=== PATIENT | male | born 1955 | race Hispanic/Latino ===

== ENCOUNTER 2025-08-04 19:00 | Emergency (ER) | payer MEDICAID, SELFPAY ==
[~2025-08-04 19:00] MED LIST: Iopamidol 300 61% 100 ML VIAL FS ONE
[2025-08-04] MEDS ORDERED: Ondansetron PF 4 MG/2 ML Vial ONE (19:59)
[2025-08-04 20:36] LABS: #Basophils 0.03 10x3/uL (0.0-0.2); #Eosinophils 0.12 10x3/uL (0.0-0.5); #Monocytes 0.38 10x3/uL (0.0-1.1); #Neutrophils 1.87 10x3/uL (1.5-8.4); %Basophils 0.7 % (0.0-2.0); %Eosinophils 3.0 % (0.0-6.0); %Lymphocytes 39.6 % (18.0-47.0); %Monocytes 9.4 % (0.0-10.0); %Neutrophils 46.3 % (40.0-75.0); Hematocrit 34.5 % (38.8-50.0); Hemoglobin 11.8 g/dL (13.5-17.5); Mean Corpuscular Hemoglobin 31.5 pg (27.0-33.0); Mean Corpuscular Volume 92.0 fL (81.2-95.1); Platelet Count 87 10x3/uL (150-450); Red Blood Cell (RBC) Count 3.75 10x6/uL (4.32-5.72); White Blood Cell (WBC) Count 4.04 10x3/uL (3.5-10.5)
[2025-08-04 20:38] LABS: ALT (SGPT) 42 U/L (Less than 45); AST (SGOT) 58 U/L (11-34); Albumin 3.0 g/dL (3.1-4.5); Alkaline Phosphatase 208 U/L (40-110); Anion Gap 11 mmol/L (10-20); BUN (Urea Nitrogen) 9 mg/dL (8.4-25.7); Bilirubin, Total 0.5 mg/dL (0.3-1.2); Calc. Creatinine Clearance 0 mL/min (70-130); Calcium 8.5 mg/dL (7.8-10.44); Carbon Dioxide 26 mmol/L (23-31); Chloride 104 mmol/L (98-107); Globulin 4.6 g/dL (2.4-3.5); Glucose 332 mg/dL (80-115); Lipase 71 U/L (8-78); Potassium 3.5 mmol/L (3.5-5.1); Sodium 137 mmol/L (136-145)
[2025-08-04 21:29] LABS: MDiff Complete? YES; Platelet Adequacy Comment Appears Decreased; RBC Morphology Within Normal Limits
== END 2025-08-04 22:50 | disposition home or self-care (01) ==
LOC: CSHERS 19:00
DX: K46.9 Unspecified abdominal hernia without obstruction or gangrene (principal); K76.9 Liver disease, unspecified; E11.9 Type 2 diabetes mellitus without complications
CPT/HCPCS: 36415; 74177; 80053; 83690; 85025; 93005; 96374; 96375; J2270; J2405; Q9967